=== PATIENT | female | born 1985 | race Asian ===

== ENCOUNTER 2020-05-16 16:59 | Outpatient (REF) | payer OTHER, SELFPAY ==
--- NOTE | 2020-05-16 | XR_ITS ---
EXAMINATION: XR HAND, LEFT CLINICAL INFORMATION: Pain in fingers. COMPARISON: None TECHNIQUE: PA, lateral, and oblique views of the left hand. FINDINGS: The bones and soft tissues are normal. No fracture. Alignment is anatomic. Joint spaces are maintained. No paravertebral osteopenia is seen, and the ulnar styloid appears intact. No erosions or soft tissue calcifications. There is no soft tissue swelling or foreign body. IMPRESSION: Normal left hand.
== END 2020-05-16 17:00 | disposition home or self-care (01) ==
LOC: HO.XRAY 16:59
PROVIDERS: PCP Internal Medicine; Visit Provider Emergency Medicine
DX: M79.645 Pain in left finger(s) (principal)
CPT/HCPCS: 73130

== ENCOUNTER 2020-07-05 15:30 | Outpatient (RCR) | payer OTHER, SELFPAY | END 2020-08-13 10:23 | disposition other institution (70) | LOC: HO.OT 15:30 | PROVIDERS: PCP Internal Medicine; Visit Provider Emergency Medicine | DX: M79.645 Pain in left finger(s) (principal) | CPT/HCPCS: 97035; 97140; 97166; 97760 ==

== ENCOUNTER 2021-11-03 16:17 | Emergency (ER) | payer OTHER, SELFPAY | END 2021-11-03 19:56 | disposition left against medical advice (07) | PROVIDERS: Emergency Provider Emergency Medicine; PCP Internal Medicine | DX: Z77.21 Contact with and (suspected) exposure to potentially hazardous body fluids (principal) ==

== ENCOUNTER → 2021-11-07 14:11 | Outpatient (BNVA) | payer OTHER, SELFPAY | PROVIDERS: PCP Internal Medicine; Visit Provider Physician Assistant | DX: Z77.21 Contact with and (suspected) exposure to potentially hazardous body fluids (principal) | CPT/HCPCS: 99204 ==